=== PATIENT | female | born 1955 | race African-American/Black ===

== ENCOUNTER 2016-09-30 02:17 | Inpatient (IN) | payer OTHER ==
[~2016-09-30] VITALS: Ht 165.1 cm; Wt 89.9 kg
[~2016-09-30 02:17] MED LIST: AMLO2.5T2 PO; AMLO5TAB2 PO; HYDR2TAB13 PO; LEVE100020 PO; LEVE500T53 PO; TRAM50TA2 PO
[2016-09-30] MEDS ORDERED: KETOROLAC 30 MG/1 ML ONE (02:48)
[2016-09-30] MEDS ORDERED: HYDROmorphone 1 MG/ML, 1ML ONE ×3 (02:48→21:10)
[2016-09-30] MEDS ORDERED: ONDANSETRON 2MG/ML, 2ML ONE ×2 (02:48→11:33)
[2016-09-30] MEDS ORDERED: ONDANSETRON 2MG/ML, 2ML IVPush ONE (03:00)
[2016-09-30] MEDS ORDERED: KETOROLAC 30 MG/1 ML IVPush ONE (03:00)
[2016-09-30] MEDS ORDERED: SODIUM CHLORIDE 0.9% 1,000ML IVBOLUS ONE (03:00)
[2016-09-30] MEDS ORDERED: HYDROmorphone 1 MG/ML, 1ML IV ONE ×2 (03:00→04:30)
[2016-09-30] MEDS ORDERED: SODIUM CHLORIDE FLUSH 10ML SYR IVF ONE (03:00)
[2016-09-30 03:06] LABS: ASPARTATE AMINO TRANSFERASE 35 U/L (15-37); BLOOD UREA NITROGEN 10 mg/dL (7-18)
[2016-09-30] MEDS ORDERED: CEFTRIAXONE PMX 1GM/50ML 50 ML ONE (06:39)
[2016-09-30] MEDS ORDERED: SODIUM CHLORIDE 0.9% 1,000 ML IV ONE (06:46)
[2016-09-30] MEDS ORDERED: ONDANSETRON 2MG/ML, 2ML IVPush PRN ×3 (07:00→13:00)
[2016-09-30] MEDS ORDERED: CEFTRIAXONE PMX 1GM/50ML 50 ML IV ONE (07:00)
[2016-09-30 07:45] VITALS: BP 155/80
[2016-09-30] MEDS ORDERED: ATEZ1200 IV (07:56)
[2016-09-30] MEDS ORDERED: ONDANSETRON 2MG/ML, 2ML IVP PRN (08:30)
[2016-09-30] MEDS ORDERED: LORazepam 2 MG/ML, 1ML IVPush PRN (08:30)
[2016-09-30] MEDS ORDERED: POTASSIUM CHLORIDE 40 MEQ in SODIUM CHLORIDE 0.9% 500 ML IV ONE (09:00)
[2016-09-30] MEDS: AMLODIPINE 5 MG TABLET PO SCH (09:00)
[2016-09-30] MEDS: PIPERACILLIN/TAZO/PMX 3.375GM 50 ML IV SCH ×2 (09:05→16:54)
[2016-09-30] MEDS: NS + 20MEQ KCL 1,000 ML IV SCH (09:05)
[2016-09-30] MEDS: FAMOTIDINE 20 MG/2 ML IV SCH ×2 (09:06→20:05)
[2016-09-30] MEDS: HYDROmorphone 2 MG/ML, 1ML IV PRN ×2 (09:06→21:17)
[2016-09-30] MEDS: LEVETIRACETAM 1000 MG PO SCH ×2 (11:15→20:06)
[2016-09-30] MEDS ORDERED: FENTANYL PF 100 MCG/2ML ONE (11:23)
[2016-09-30] MEDS ORDERED: LABETALOL 5MG/ML, 20ML IV PRN (11:30)
[2016-09-30] MEDS ORDERED: hydrALAzine 20 MG/ML, 1ML IV PRN (11:30)
[2016-09-30] MEDS ORDERED: LEVETIRACETAM 500 MG TABLET PO ONE (11:30)
[2016-09-30] MEDS ORDERED: PROMETHAZINE 25 MG/ML, 1ML IV PRN (11:30)
[2016-09-30] MEDS ORDERED: FENTANYL PF 100 MCG/2ML IV PRN ×2 (11:30→13:00)
[2016-09-30] MEDS ORDERED: OXYcodone 5 MG/5 ML ORAL.SOL UDC PO PRN ×2 (11:30→13:00)
[2016-09-30] MEDS ORDERED: HYDROmorphone 1 MG/ML, 1ML IV PRN (11:30)
[2016-09-30] MEDS ORDERED: PROPOFOL 10 MG/ML, 20ML ONE (11:33)
[2016-09-30] MEDS ORDERED: CEFAZOLIN 1,000 MG ONE (11:33)
[2016-09-30] MEDS ORDERED: DEXAMETHASONE 4 MG/ML, 1ML ONE (11:33)
[2016-09-30] MEDS ORDERED: OXYcodone 5 MG/5 ML ORAL.SOL UDC ONE (12:41)
[2016-09-30] MEDS ORDERED: MEPERIDINE/PF 25MG/0.5ML IVPush PRN (13:00)
[2016-09-30 13:38] VITALS: BP 165/103
[2016-09-30] MEDS ORDERED: TEMPLATE NON-FORMULARY MED. 1 EA, TEMPLATE NON-FORMULARY MED. 1 EA IRRIG SCH (15:00)
[2016-09-30] MEDS ORDERED: [UNRECOGNIZED DRUG - MIXTURE] MC SCH (15:30)
[2016-09-30 19:38] VITALS: BP 132/84
[2016-10-01] MEDS: PIPERACILLIN/TAZO/PMX 3.375GM 50 ML IV SCH ×3 (00:23→16:54)
[2016-10-01] MEDS ORDERED: HYDROmorphone 1 MG/ML, 1ML ONE ×3 (01:46→06:43)
[2016-10-01] MEDS: HYDROmorphone 2 MG/ML, 1ML IV PRN ×6 (01:52→21:30)
[2016-10-01 02:16] VITALS: BP 133/88
[2016-10-01 02:48] LABS: BLOOD UREA NITROGEN 5 mg/dL (7-18)
[2016-10-01] MEDS: NS + 20MEQ KCL 1,000 ML IV SCH ×2 (03:57→18:17)
[2016-10-01 07:11] VITALS: BP 138/87
[2016-10-01] MEDS: FAMOTIDINE 20 MG/2 ML IV SCH ×2 (08:13→21:08)
[2016-10-01] MEDS ORDERED: LIDOCAINE 2%, 20ML ONE (10:32)
[2016-10-01] MEDS: AMLODIPINE 5 MG TABLET PO SCH (11:44)
[2016-10-01] MEDS: LEVETIRACETAM 1000 MG PO SCH ×2 (12:30→21:00)
[2016-10-01] MEDS ORDERED: MIDAZOLAM 1 MG/ML, 5ML ONE ×2 (12:35→13:49)
[2016-10-01] MEDS ORDERED: FENTANYL PF 100 MCG/2ML ONE ×2 (12:36→12:55)
[2016-10-01 13:00] VITALS: BP 167/85
[2016-10-01 20:20] VITALS: BP 122/83
[2016-10-01] MEDS ORDERED: DOCUSATE 100 MG CAPSULE PO PRN (21:00)
[2016-10-02] MEDS: PIPERACILLIN/TAZO/PMX 3.375GM 50 ML IV SCH ×3 (00:31→16:58)
[2016-10-02] MEDS: HYDROmorphone 2 MG/ML, 1ML IV PRN ×3 (00:55→08:12)
[2016-10-02 02:55] VITALS: BP 129/77
[2016-10-02] MEDS: NS + 20MEQ KCL 1,000 ML IV SCH ×2 (03:05→06:00)
[2016-10-02 03:23] LABS: BLOOD UREA NITROGEN 6 mg/dL (7-18)
[2016-10-02 06:38] VITALS: BP 120/87
[2016-10-02] MEDS: AMLODIPINE 5 MG TABLET PO SCH (08:17)
[2016-10-02] MEDS: FAMOTIDINE 20 MG/2 ML IV SCH ×2 (08:17→21:42)
[2016-10-02] MEDS: LEVETIRACETAM 1000 MG PO SCH ×2 (08:18→21:42)
[2016-10-02 12:35] VITALS: BP 145/90
[2016-10-02 20:40] VITALS: BP 133/81
[2016-10-03] MEDS: PIPERACILLIN/TAZO/PMX 3.375GM 50 ML IV SCH ×3 (00:47→16:40)
[2016-10-03 01:28] VITALS: BP 141/84
[2016-10-03 06:38] VITALS: BP 144/74
[2016-10-03 07:10] LABS: BLOOD UREA NITROGEN 5 mg/dL (7-18)
[2016-10-03] MEDS: LEVETIRACETAM 1000 MG PO SCH ×2 (09:00→20:44)
[2016-10-03] MEDS ORDERED: FAMOTIDINE 20 MG TABLET PO SCH (09:00)
[2016-10-03] MEDS: AMLODIPINE 5 MG TABLET PO SCH (09:20)
[2016-10-03] MEDS: HYDROmorphone 2 MG/ML, 1ML IV PRN ×2 (09:41→16:40)
[2016-10-03] MEDS ORDERED: BISACODYL 10 MG SUPP PR PRN (10:00)
[2016-10-03] MEDS ORDERED: BISACODYL 5 MG EC TABLET PO PRN (10:00)
[2016-10-03] MEDS ORDERED: MAGNESIUM HYDROXIDE 8%, 30ML UDC PO PRN (10:00)
[2016-10-03] MEDS ORDERED: OPIUM/BELLADONNA SUPP.RECT 16.2-30 MG PR PRN (10:00)
[2016-10-03] MEDS ORDERED: POLYETHYLENE GLYCOL 17 GM PACKET PO PRN (10:00)
[2016-10-03] MEDS ORDERED: OMNIPAQUE 350 MG/ML, 75ML BOTTLE ONE (11:05)
[2016-10-03] MEDS: LACTOBACILLUS CHEW TABLET PO SCH ×2 (12:20→20:44)
[2016-10-03 12:30] VITALS: BP 130/84
[2016-10-03 20:21] VITALS: BP 130/79
[2016-10-03] MEDS: SENNA/DOCUSATE TABLET PO SCH (20:44)
[2016-10-04] MEDS: PIPERACILLIN/TAZO/PMX 3.375GM 50 ML IV SCH ×2 (01:07→08:32)
[2016-10-04 01:56] VITALS: BP 142/83
[2016-10-04 06:51] LABS: BLOOD UREA NITROGEN 5 mg/dL (7-18)
[2016-10-04 06:55] VITALS: BP 141/85
[2016-10-04] MEDS: LACTOBACILLUS CHEW TABLET PO SCH (08:32)
[2016-10-04] MEDS: LEVETIRACETAM 1000 MG PO SCH (08:33)
[2016-10-04] MEDS: AMLODIPINE 5 MG TABLET PO SCH (08:33)
[2016-10-04] MEDS: SENNA/DOCUSATE TABLET PO SCH (08:33)
[2016-10-04] MEDS ORDERED: CEFDINIR 300 MG CAPSULE PO SCH (10:00)
[2016-10-04] MEDS ORDERED: CEFD300C37 PO ×2 (11:32→11:42)
[2016-10-04] MEDS ORDERED: ACID1TAB7 PO (11:32)
== END 2016-10-04 13:40 | disposition home or self-care (01) | DRG 699 ==
LOC: ED 02:48 → 3NW 06:48 → DCLOUNGE 10-04 13:15
PROVIDERS: ADMIT Internal Medicine; ATTEND Internal Medicine
PROC: 0T9B70Z Drainage of Bladder with Drainage Device, Via Natural or Artificial Opening (ICD-10-PCS; 2016-09-30)
PROC: 0TCB8ZZ Extirpation of Matter from Bladder, Via Natural or Artificial Opening Endoscopic (ICD-10-PCS; principal; 2016-09-30 12:00)
PROC: 0W9F30Z Drainage of Abdominal Wall with Drainage Device, Percutaneous Approach (ICD-10-PCS; 2016-10-01)
DX: N30.41 Irradiation cystitis with hematuria (principal); C78.00 Secondary malignant neoplasm of unspecified lung; R18.8 Other ascites; C79.31 Secondary malignant neoplasm of brain; E87.6 Hypokalemia; C67.9 Malignant neoplasm of bladder, unspecified; C67.7 Malignant neoplasm of urachus; Z66 Do not resuscitate; R91.1 Solitary pulmonary nodule; G62.0 Drug-induced polyneuropathy; T45.1X5A Adverse effect of antineoplastic and immunosuppressive drugs, initial encounter; I10 Essential (primary) hypertension; K59.00 Constipation, unspecified; E16.2 Hypoglycemia, unspecified; R56.9 Unspecified convulsions; Z90.710 Acquired absence of both cervix and uterus; Z90.722 Acquired absence of ovaries, bilateral; Z88.5 Allergy status to narcotic agent; Z91.013 Allergy to seafood; Z79.899 Other long term (current) drug therapy
CPT/HCPCS: 36415; 49406; 71260; 74176; 75989; 80048; 80053; 81001; 82108; 82962; 85014; 85018; 85025; 85610; 85730; 87070; 87075; 87077; 87086; 87205; 96361; 96374; 96375; C1894; J0690; J0696; J1100; J1170; J1885; J2250; J2405; J2543; J2704; J3010; J3480; J3490; Q9967; C1729; C1769; J7030; J7040; S0028

== ENCOUNTER → 2016-10-19 | Outpatient (CLI) | payer OTHER ==
[~2016-10-19] MED LIST changes: +ACID1TAB7 PO; +ATEZ1200 IV; +CEFD300C37 PO; +GADOBUTROL 10 MMOL/10 ML PFS ONE
== END | disposition home or self-care (01) ==
LOC: CFH 08:18
PROVIDERS: ATTEND Radiology Radiation Oncology
DX: C79.31 Secondary malignant neoplasm of brain (principal); C67.9 Malignant neoplasm of bladder, unspecified; J34.1 Cyst and mucocele of nose and nasal sinus; I67.82 Cerebral ischemia; R90.82 White matter disease, unspecified; I10 Essential (primary) hypertension; G93.89 Other specified disorders of brain
CPT/HCPCS: 70553; A9585

== ENCOUNTER → 2016-10-25 | Outpatient (CLI) | payer OTHER ==
[~2016-10-25] MED LIST changes: -GADOBUTROL 10 MMOL/10 ML PFS ONE
== END | disposition home or self-care (01) ==
LOC: ROC 07:57
PROVIDERS: ATTEND Radiology Radiation Oncology
DX: C79.31 Secondary malignant neoplasm of brain (principal); C78.01 Secondary malignant neoplasm of right lung; C67.7 Malignant neoplasm of urachus; I67.82 Cerebral ischemia; G93.9 Disorder of brain, unspecified; R90.82 White matter disease, unspecified; Z98.890 Other specified postprocedural states; Z92.3 Personal history of irradiation
CPT/HCPCS: 99213; G0463

== ENCOUNTER → 2017-02-06 | Outpatient (CLI) | payer OTHER ==
[~2017-02-06] MED LIST changes: -HYDR2TAB13 PO; +HYDR2TAB29 PO; +OMNIPAQUE 350 MG/ML, 100ML BOTTLE ONE
== END | disposition home or self-care (01) ==
LOC: CFH 07:37
PROVIDERS: ATTEND Internal Medicine Hematology & Oncology
DX: C67.7 Malignant neoplasm of urachus (principal); N28.1 Cyst of kidney, acquired; R59.0 Localized enlarged lymph nodes; R91.8 Other nonspecific abnormal finding of lung field; M51.04 Intervertebral disc disorders with myelopathy, thoracic region
CPT/HCPCS: 71260; 74177; Q9967

== ENCOUNTER 2017-03-06 06:05 | Day surgery (SDC) | payer OTHER ==
[~2017-03-06] VITALS: Ht 165.1 cm; Wt 75.0 kg
[~2017-03-06 06:05] MED LIST changes: -OMNIPAQUE 350 MG/ML, 100ML BOTTLE ONE
[2017-03-06] MEDS ORDERED: SODIUM CHLORIDE 0.9% 1,000 ML IV SCH (06:36)
[2017-03-06 06:39] VITALS: BP 133/87
[2017-03-06] MEDS ORDERED: LIDOCAINE 1%, 20ML ONE (07:23)
[2017-03-06] MEDS ORDERED: FLUMAZENIL 0.1 MG/1 ML, 5ML ONE (07:49)
[2017-03-06] MEDS ORDERED: MIDAZOLAM 1 MG/ML, 5ML ONE (07:49)
[2017-03-06] MEDS ORDERED: FENTANYL PF 100 MCG/2ML ONE (07:49)
[2017-03-06] MEDS ORDERED: NALOXONE 1 MG/ML, 2ML ONE (07:49)
== END 2017-03-06 12:10 ==
LOC: OUT 06:05
PROVIDERS: ATTEND Internal Medicine Hematology & Oncology
DX: R91.8 Other nonspecific abnormal finding of lung field (principal); I10 Essential (primary) hypertension; E11.9 Type 2 diabetes mellitus without complications
CPT/HCPCS: 32405; 71010; 77012; 88305; 88341; 88342; J2250; J3010; J3490; J7030; G0461; J2310

== ENCOUNTER 2017-05-22 18:56 | Inpatient (IN) | payer OTHER ==
[~2017-05-22] VITALS: Ht 165.1 cm; Wt 58.2 kg
[2017-05-22] MEDS ORDERED: SODIUM CHLORIDE FLUSH 10ML SYR IVF ONE (19:30)
[2017-05-22 19:33] LABS: HEMATOCRIT 39.1 % (34.6-47.8); HEMOGLOBIN 12.7 g/dL (11.7-16.4); WHITE BLOOD COUNT 8.1 x10^3/uL (3.4-10)
[2017-05-22 19:36] LABS: BLOOD UREA NITROGEN 9 mg/dL (7-18)
[2017-05-22 19:39] LABS: ASPARTATE AMINO TRANSFERASE 32 U/L (15-37)
[2017-05-22] MEDS ORDERED: CEFTRIAXONE PMX 1GM/50ML 50 ML IV ONE (22:00)
[2017-05-22] MEDS ORDERED: CEFTRIAXONE PMX 1GM/50ML 50 ML ONE (22:28)
[2017-05-23 00:08] VITALS: BP 117/86
[2017-05-23 00:13] VITALS: BP 117/86
[2017-05-23] MEDS ORDERED: POLYETHYLENE GLYCOL 17 GM PACKET PO PRN (00:30)
[2017-05-23] MEDS ORDERED: BISACODYL 10 MG SUPP PR PRN (00:30)
[2017-05-23] MEDS ORDERED: ONDANSETRON 2MG/ML, 2ML IVPush PRN (00:30)
[2017-05-23] MEDS ORDERED: CEFTRIAXONE PMX 1GM/50ML 50 ML IV SCH (00:30)
[2017-05-23] MEDS ORDERED: ACETAMINOPHEN 325 MG TABLET PO PRN (00:30)
[2017-05-23] MEDS: HEPARIN 5,000 UNITS/ML, 1ML SQ SCH ×3 (01:49→17:29)
[2017-05-23] MEDS: NS + 20MEQ KCL 1,000 ML IV SCH ×3 (01:49→21:47)
[2017-05-23 04:57] LABS: HEMATOCRIT 35.5 % (34.6-47.8); HEMOGLOBIN 11.5 g/dL (11.7-16.4); WHITE BLOOD COUNT 5.3 x10^3/uL (3.4-10)
[2017-05-23 05:09] LABS: BLOOD UREA NITROGEN 10 mg/dL (7-18)
[2017-05-23 05:14] LABS: ASPARTATE AMINO TRANSFERASE 26 U/L (15-37)
[2017-05-23 07:45] VITALS: BP 115/81
[2017-05-23] MEDS: LACTOBACILLUS CHEW TABLET PO SCH ×2 (07:52→21:35)
[2017-05-23] MEDS: SENNA/DOCUSATE TABLET PO SCH (07:52)
[2017-05-23] MEDS: AMLODIPINE 5 MG TABLET PO SCH (07:52)
[2017-05-23] MEDS: LEVETIRACETAM 500 MG TABLET PO SCH ×2 (07:52→21:35)
[2017-05-23 13:56] VITALS: BP 114/78
[2017-05-23] MEDS: POTASSIUM CHLORIDE 20 MEQ TAB.ER.PRT PO SCH (17:28)
[2017-05-23 19:01] VITALS: BP 123/81
[2017-05-23] MEDS: CEFTRIAXONE PMX 1GM/50ML 50 ML IV SCH (23:14)
[2017-05-24] MEDS: HEPARIN 5,000 UNITS/ML, 1ML SQ SCH ×3 (02:27→17:15)
[2017-05-24 02:49] VITALS: BP 126/72
[2017-05-24 05:05] LABS: ASPARTATE AMINO TRANSFERASE 28 U/L (15-37); BLOOD UREA NITROGEN 7 mg/dL (7-18); HEMATOCRIT 31.6 % (34.6-47.8); HEMOGLOBIN 10.3 g/dL (11.7-16.4); WHITE BLOOD COUNT 4.8 x10^3/uL (3.4-10)
[2017-05-24 06:37] VITALS: BP 133/85
[2017-05-24] MEDS: NS + 20MEQ KCL 1,000 ML IV SCH ×2 (08:02→18:03)
[2017-05-24] MEDS: SENNA/DOCUSATE TABLET PO SCH (08:02)
[2017-05-24] MEDS: AMLODIPINE 5 MG TABLET PO SCH (08:02)
[2017-05-24] MEDS: POTASSIUM CHLORIDE 20 MEQ TAB.ER.PRT PO SCH (08:02)
[2017-05-24] MEDS: LEVETIRACETAM 500 MG TABLET PO SCH ×2 (08:02→20:28)
[2017-05-24] MEDS: LACTOBACILLUS CHEW TABLET PO SCH ×2 (08:02→20:28)
[2017-05-24] MEDS ORDERED: MAGNESIUM SULFATE PMX 4GM/100M 100 ML IV ONE (09:00)
[2017-05-24 12:54] VITALS: BP 106/71
[2017-05-24 18:37] VITALS: BP 127/80
[2017-05-24] MEDS: CEFTRIAXONE PMX 1GM/50ML 50 ML IV SCH (23:16)
[2017-05-25 01:30] VITALS: BP 131/81
[2017-05-25] MEDS: HEPARIN 5,000 UNITS/ML, 1ML SQ SCH ×3 (02:25→17:52)
[2017-05-25] MEDS: NS + 20MEQ KCL 1,000 ML IV SCH ×2 (04:15→14:32)
[2017-05-25 06:45] VITALS: BP 132/87
[2017-05-25] MEDS: AMLODIPINE 5 MG TABLET PO SCH (08:58)
[2017-05-25] MEDS: LEVETIRACETAM 500 MG TABLET PO SCH ×2 (08:58→20:15)
[2017-05-25] MEDS: LACTOBACILLUS CHEW TABLET PO SCH ×2 (08:58→20:16)
[2017-05-25] MEDS: SENNA/DOCUSATE TABLET PO SCH (08:59)
[2017-05-25 12:46] VITALS: BP 125/86
[2017-05-25 18:34] VITALS: BP 138/93
[2017-05-25] MEDS: CEFTRIAXONE PMX 1GM/50ML 50 ML IV SCH (23:34)
[2017-05-26 00:50] VITALS: BP 128/85
[2017-05-26] MEDS: HEPARIN 5,000 UNITS/ML, 1ML SQ SCH ×3 (01:36→18:23)
[2017-05-26 04:52] LABS: BLOOD UREA NITROGEN 3 mg/dL (7-18)
[2017-05-26 07:21] VITALS: BP 121/80
[2017-05-26] MEDS: LACTOBACILLUS CHEW TABLET PO SCH ×2 (08:37→21:01)
[2017-05-26] MEDS: LEVETIRACETAM 500 MG TABLET PO SCH ×2 (08:37→21:01)
[2017-05-26] MEDS: AMLODIPINE 5 MG TABLET PO SCH (08:38)
[2017-05-26] MEDS: SENNA/DOCUSATE TABLET PO SCH (08:38)
[2017-05-26 12:25] VITALS: BP 121/72
[2017-05-26] MEDS ORDERED: MAGNESIUM SULFATE PMX 2GM/50ML 50 ML IV ONE (15:00)
[2017-05-26 19:38] VITALS: BP 121/82
[2017-05-26] MEDS: CEFTRIAXONE PMX 1GM/50ML 50 ML IV SCH (22:57)
[2017-05-27 02:48] VITALS: BP 122/86
[2017-05-27] MEDS: HEPARIN 5,000 UNITS/ML, 1ML SQ SCH ×3 (02:50→18:43)
[2017-05-27 04:38] LABS: BLOOD UREA NITROGEN 6 mg/dL (7-18)
[2017-05-27 04:42] LABS: HEMATOCRIT 33.9 % (34.6-47.8); HEMOGLOBIN 11.2 g/dL (11.7-16.4); WHITE BLOOD COUNT 6.7 x10^3/uL (3.4-10)
[2017-05-27 06:45] VITALS: BP 112/77
[2017-05-27] MEDS: AMLODIPINE 5 MG TABLET PO SCH (08:28)
[2017-05-27] MEDS: SENNA/DOCUSATE TABLET PO SCH (08:29)
[2017-05-27] MEDS: LEVETIRACETAM 500 MG TABLET PO SCH ×2 (08:29→20:38)
[2017-05-27] MEDS: LACTOBACILLUS CHEW TABLET PO SCH ×2 (08:29→22:56)
[2017-05-27 19:00] VITALS: BP 118/84
[2017-05-27] MEDS: CEFTRIAXONE PMX 1GM/50ML 50 ML IV SCH (22:56)
[2017-05-28 01:18] VITALS: BP 115/78
[2017-05-28] MEDS: HEPARIN 5,000 UNITS/ML, 1ML SQ SCH ×3 (02:55→18:16)
[2017-05-28 04:41] LABS: HEMATOCRIT 34.7 % (34.6-47.8); HEMOGLOBIN 11.3 g/dL (11.7-16.4); WHITE BLOOD COUNT 4.9 x10^3/uL (3.4-10)
[2017-05-28 04:47] LABS: BLOOD UREA NITROGEN 8 mg/dL (7-18)
[2017-05-28 08:45] VITALS: BP 121/67
[2017-05-28] MEDS: LEVETIRACETAM 500 MG TABLET PO SCH ×2 (08:47→20:35)
[2017-05-28] MEDS: LACTOBACILLUS CHEW TABLET PO SCH ×2 (08:47→20:35)
[2017-05-28] MEDS: SENNA/DOCUSATE TABLET PO SCH (08:47)
[2017-05-28] MEDS: AMLODIPINE 5 MG TABLET PO SCH (08:47)
[2017-05-28 13:56] VITALS: BP 120/86
[2017-05-28] MEDS ORDERED: MAGNESIUM SULFATE PMX 2GM/50ML 50 ML IV ONE (14:30)
[2017-05-28 19:00] VITALS: BP 136/85
[2017-05-28] MEDS: CEFTRIAXONE PMX 1GM/50ML 50 ML IV SCH (22:47)
[2017-05-29 01:12] VITALS: BP 129/78
[2017-05-29] MEDS: HEPARIN 5,000 UNITS/ML, 1ML SQ SCH ×3 (03:14→17:52)
[2017-05-29 04:56] LABS: BLOOD UREA NITROGEN 10 mg/dL (7-18)
[2017-05-29 04:58] LABS: HEMATOCRIT 33.9 % (34.6-47.8); HEMOGLOBIN 10.9 g/dL (11.7-16.4); WHITE BLOOD COUNT 5.7 x10^3/uL (3.4-10)
[2017-05-29 06:30] VITALS: BP 120/86
[2017-05-29] MEDS: LEVETIRACETAM 500 MG TABLET PO SCH ×2 (08:47→20:29)
[2017-05-29] MEDS: LACTOBACILLUS CHEW TABLET PO SCH ×2 (08:47→20:29)
[2017-05-29] MEDS: SENNA/DOCUSATE TABLET PO SCH (08:47)
[2017-05-29] MEDS: AMLODIPINE 5 MG TABLET PO SCH (08:47)
[2017-05-29 13:55] VITALS: BP 125/86
[2017-05-29 19:01] VITALS: BP 129/88
[2017-05-29] MEDS: CEFTRIAXONE PMX 1GM/50ML 50 ML IV SCH (23:01)
[2017-05-30 01:55] VITALS: BP 118/82
[2017-05-30] MEDS: HEPARIN 5,000 UNITS/ML, 1ML SQ SCH ×2 (02:59→10:41)
[2017-05-30 06:40] VITALS: BP 118/84
[2017-05-30] MEDS: LEVETIRACETAM 500 MG TABLET PO SCH (08:35)
[2017-05-30] MEDS: AMLODIPINE 5 MG TABLET PO SCH (08:36)
[2017-05-30] MEDS: SENNA/DOCUSATE TABLET PO SCH (08:36)
[2017-05-30] MEDS: LACTOBACILLUS CHEW TABLET PO SCH (08:36)
== END 2017-05-30 12:26 | disposition home or self-care (01) | DRG 689 ==
LOC: ED 21:21 → EDIP 23:21 → 3NW 23:53
PROVIDERS: ADMIT Surgery; ATTEND Internal Medicine
DX: N39.0 Urinary tract infection, site not specified (principal); E43 Unspecified severe protein-calorie malnutrition; C78.00 Secondary malignant neoplasm of unspecified lung; C79.31 Secondary malignant neoplasm of brain; C67.9 Malignant neoplasm of bladder, unspecified; E83.42 Hypomagnesemia; E87.1 Hypo-osmolality and hyponatremia; D64.9 Anemia, unspecified; Z68.21 Body mass index [BMI] 21.0-21.9, adult; Z88.5 Allergy status to narcotic agent; Z91.013 Allergy to seafood; E87.6 Hypokalemia; G40.909 Epilepsy, unspecified, not intractable, without status epilepticus; G62.0 Drug-induced polyneuropathy; I10 Essential (primary) hypertension; T45.1X5A Adverse effect of antineoplastic and immunosuppressive drugs, initial encounter; Z66 Do not resuscitate; Z79.899 Other long term (current) drug therapy; Z90.710 Acquired absence of both cervix and uterus; Z92.3 Personal history of irradiation; F32.9 Major depressive disorder, single episode, unspecified
CPT/HCPCS: 36415; 71010; 76770; 80048; 80053; 81001; 83735; 84100; 85025; 87040; 87086; 96365; J0696; J1644; J3480; J3475